=== PATIENT | female | born 1985 | race Caucasian/White ===

== ENCOUNTER 2016-07-22 14:43 | Inpatient (IN) | payer OTHER ==
[~2016-07-22] VITALS: Ht 165.1 cm; Wt 74.8 kg
[~2016-07-22 14:43] MED LIST: DICLOFENAC SODI75 M2 PO; DOXYCYCLINE HY100 M2 PO; NORCO 5-325 TA1 EACH PO
--- NOTE | 2016-07-22 14:54 | NUR ---
PT TO ED C/O R ABD PAIN, RADIATES FROM FRONT ABD TO BACK OF ABD SINCE SATURDAY. C/O SOME NAUSEA, DENIES V/D. PT STATES PAIN IS WORSE WITH INSPIRATION. STATES FEVERS AT HOME HIGH 104, LAST NIGHT. AFEBRILE NOW.
--- NOTE | 2016-07-22 15:02 | NUR ---
DR FARMER TO BEDSIDE FOR EVAL
--- NOTE | 2016-07-22 15:06 | ED GI/GU/ABDOMINAL COMPLAINT ---
History of Present Illness General Chief Complaint: Abdominal Pain/Flank Pain Stated Complaint: R SIDE FLANK PAIN Source: patient, old records Exam Limitations: no limitations Allergies Coded Allergies: NO KNOWN ALLERGIES (02/15/16) Reconcile Medications No Known Home Medications Triage Note: PT TO ED C/O R ABD PAIN, RADIATES FROM FRONT ABD TO BACK OF ABD SINCE SATURDAY. C/O SOME NAUSEA, DENIES V/D. PT STATES PAIN IS WORSE WITH INSPIRATION. STATES FEVERS AT HOME HIGH 104, LAST NIGHT. AFEBRILE NOW. Triage Nurses Notes Reviewed? yes ? N Is pt currently ? No Onset: Abrupt Duration: day(s): (4) Timing: multiple episodes today Severity Numbers: 10 Location: right flank Activities at Onset: none No Modifying Factors: none Associated Symptoms: dysuria, fever/chills, nausea/vomiting HPI: This is a 22-year-old healthy female presents the ER with chief complaint of right flank pain for the past 4 days with fever up to 104.5 at home. Patient admits to dysuria and pain when urinating. Positive nausea but no vomiting. Denies any diarrhea. Denies any similar symptoms. (MARLENY BARAJAS,JUAN CARLOS) Vital Signs & Intake/Output Vital Signs & Intake/Output Vital Signs Date Time Temp Pulse Resp B/P Pulse O2 O2 Flow FiO2 Ox Delivery Rate 07/23 1006 98.8 07/23 0921 99.9 113 20 122/60 97 Room Air 07/23 0907 99.4 07/23 0216 99.0 92 20 118/56 100 Room Air 07/23 0149 100.2 07/23 0146 100.2 88 18 112/58 98 Room Air 07/22 2315 100.6 07/22 2309 100.6 102 18 117/58 97 Room Air 07/22 1922 99.5 07/22 1903 100.0 100 20 96 Room Air 07/22 1733 102.0 119/57 07/22 1726 100.2 16 99 Room Air 07/22 1721 103.0 07/22 1707 97.7 07/22 1603 97.7 80 18 120/76 96 Room Air 07/22 1555 98 Room Air 07/22 1451 97.2 114 20 114/81 96 Room Air ED Intake and Output 07/23 0000 07/22 1200 Intake Total 2000 Output Total Balance 2000 Intake, IV 2000 Patient 165 lb Weight ED Sepsis Exam Date of Focused Sepsis Exam: 07/22/16 Time of Focused Sepsis Exam: 1724 Sepsis Cardiac Exam: Tachycardia Sepsis Resp Exam: CTA Sepsis Cap Refill Exam: <2 Sec Sepsis Peripheral Pulse Exam: Normal Sepsis Peripheral Pulse Location: Radial Sepsis Skin Color Exam: Normal for Ethnicity Skin Temp/Moisture Exam: Hot/Diaphoretic (JUAN CARLOS FARMER MD) Past History Travel History Traveled to [place] past 21 day No Medical History Any Pertinent Medical History? see below for history Neurological: NONE EENT: NONE Cardiovascular: NONE Respiratory: NONE Gastrointestinal: NONE Hepatic: NONE Renal: NONE Musculoskeletal: NONE Psychiatric: NONE Endocrine: NONE Blood Disorders: NONE Cancer(s): NONE Surgical History Surgical History: non-contributory Psychosocial History What is your primary language [place] Tobacco Use: Current Daily Use Daily Tobacco Use Amount/Type: => 5 Cigarettes daily ETOH Use: denies use Illicit Drug Use: denies illicit drug use Family History Hx Contributory? No (JUAN CARLOS FARMER MD) Review of Systems Review of Systems Constitutional: Reports: chills, fever. EENTM: Reports: no symptoms. Respiratory: Denies: cough, short of breath. Cardiovascular: Denies: chest pain, palpitations. GI: Reports: abdominal pain, nausea. Denies: vomiting. Genitourinary: Reports: no symptoms. Musculoskeletal: Reports: back pain. Skin: Reports: no symptoms. Neurological/Psychological: Reports: no symptoms. Hematologic/Endocrine: Reports: polyuria. Denies: bruising, bleeding, polydipsia. Immunologic/Allergic: Denies: splenectomy. All Other Systems: Reviewed and Negative (JUAN CARLOS FARMER MD) Physical Exam Physical Exam General Appearance: well developed/nourished, alert, awake, mild distress Head: atraumatic, normal appearance Eyes: Bilateral: normal appearance, PERRL, normal inspection. Ears, Nose, Throat, Mouth: hearing grossly normal, moist mucous membrane Neck: normal inspection, supple, full range of motion Respiratory: normal breath sounds, chest non-tender, no respiratory distress Cardiovascular: regular rate/rhythm Peripheral Pulses: 2+ radial (R), 2+ radial (L) Gastrointestinal: normal bowel sounds, soft, tenderness (RUQ) Back: CVA tenderness (R) Neurologic/Psych: no motor/sensory deficits, awake, alert, oriented x 3, normal gait Skin: intact, normal color, warm/dry Core Measures ACS in differential dx? No Severe Sepsis Present: No BC x2: Yes NS/LR Started: Yes Septic Shock Present: No (MARLENY BARAJAS,JUAN CARLOS) Progress Differential Diagnosis: UTI/pyelo Diagnostic Imaging: Viewed by Me: CT Scan. Discussed w/RAD: CT Scan. Initial ED EKG: SINUS TACHYCARDIA, INFERIOR T WAVE INVERSIONS (MARLENY BARAJAS,JUAN CARLOS) Plan of Care: Orders Procedure Date/time Status CBC WITHOUT DIFFERENTIAL 07/24 599 Active BASIC ELECTROLYTES PLUS BUN&CR 07/24 599 Active Clear Liquid Diet 07/23 B Active CBC WITHOUT DIFFERENTIAL 07/23 599 Complete BASIC ELECTROLYTES PLUS BUN&CR 07/23 599 Complete Vital Signs 07/23 202 Active Teach/Educate 07/23 202 Active Nutritional Intake, Monitor 07/23 202 Active Isolation 07/23 202 Active Intake & Output 07/23 202 Active Patient Care Conference 07/23 202 Active Activity/Ambulation 07/23 202 Active Saline Lock 07/22 221 Active Pathway - chart 07/22 2212 Active House Staff 07/22 221 Active Code Status 07/22 2212 Active Patient Data 07/22 1905 Active Admit to inpatient 07/22 1839 Active Vital Signs 07/22 1839 Active Code Status 07/22 1839 Complete Add-on Test (ER Only) 07/22 1805 Active EKG 07/22 1732 Active Intake & Output 07/22 1532 Complete Add-on Test (ER Only) 07/22 1526 Active TROPONIN LEVEL 07/22 1525 Complete CULTURE,URINE 07/22 1505 Active BLOOD CULTURE 07/22 1505 Active URINE 07/22 1505 Complete URINALYSIS 07/22 1505 Complete COMPREHENSIVE METABOLIC PANEL 07/22 1505 Complete CBC WITHOUT DIFFERENTIAL 07/22 1505 Complete URINE DRUGS OF ABUSE 07/22 1501 Complete VTE Mechanical Prophylaxis 07/22 UNK Active Vital Signs 07/22 UNK Complete Intake & Output 07/22 UNK Active CIWA 07/22 UNK Complete Laboratory Tests 07/23/16 0830: Anion Gap 11, Estimated GFR > 60, BUN/Creatinine Ratio 8.3, CBC w Diff NO MAN DIFF REQ, RBC 3.69 L, MCV 87.0, MCH 29.5, RDW 14.1, MPV 10.3, Gran % 78.3 H, Lymphocytes % 13.2 L, Monocytes % 8.0, Eosinophils % 0.2, Basophils % 0.3, Absolute Granulocytes 9.9 H, Absolute Lymphocytes 1.7, Absolute Monocytes 1.0 H, Absolute Eosinophils 0, Absolute Basophils 0, [facility] MCHC 33.9 07/22/16 1525: Anion Gap 15, Estimated GFR > 60, BUN/Creatinine Ratio 14.3, Glucose 103 H, Calcium 9.1, Total Bilirubin 0.9, AST 29, ALT 27, Alkaline Phosphatase 89, Troponin I < 0.01, Total Protein 7.4, Albumin 3.7, Globulin 3.7, Albumin/ Globulin Ratio 1.0 L, CBC w Diff MAN DIFF ORDERED, RBC 4.64, MCV 87.4, MCH 29.4 , RDW 14.2, MPV 10.1, Gran % 83.8 H, Lymphocytes % 9.5 L, Monocytes % 6.4, Eosinophils % 0.1, Basophils % 0.2, Absolute Granulocytes 16.9 H, Segmented Neutrophils 81 H, Band Neutrophils 1, Absolute Lymphocytes 1.9, Lymphocytes 12 L, Monocytes 6, Absolute Monocytes 1.3 H, Absolute Eosinophils 0, Absolute Basophils 0, Platelet Estimate ADEQUATE, Normocytic RBCs VERIFIED, Normochromic RBCs VERIFIED, [facility] 33.6 07/22/16 1515: Urinalysis LIGHT H, Urine Color STRAW, Urine Clarity HAZY H, Urine pH 6.0, Ur Specific [place] 1.020, Urine Protein 30 H, Urine Ketones 40 H, Urine Nitrite POS H, Urine Bilirubin NEG@ICTO, Urine Urobilinogen 2.0 H, Ur Leukocyte Esterase MOD H, Ur Microscopic SEDIMENT EXAMINED, Urine RBC 1-3, Urine WBC > 75 H, Ur Epithelial Cells RARE, Urine Hemoglobin TRACE-INTACT, Urine Glucose NEG, Urine Test NEGATIVE 07/22/16 1501: Urine Opiates Screen > 4000.00 H, Methadone Screen < 40, Barbiturate Screen < 60, Ur Phencyclidine Scrn < 6.00, Amphetamines Screen 124, U Benzodiazepines Scrn < 85, Urine Cocaine Screen > 1000 H, Urine Cannabis Screen < 5.00 Microbiology 07/22 1530 BLOOD: Blood Culture - RES GRAM NEGATIVE RODS 07/22 152 BLOOD: Blood Culture - RES 07/22 151 URINE ROUT: Urine Culture - RES GRAM NEGATIVE RODS Departure Departure Time of Disposition: 1839 Disposition: STILL A PATIENT Condition: Stable Clinical Impression Primary Impression: Pyelonephritis Secondary Impressions: Cocaine abuse, Sepsis Referrals: PATIENT HAS NO PRIMARY CARE DR (PCP/Family) Departure Forms: Customer Survey General Discharge Information Prescriptions: Current Visit Scripts No Known Home Medications Admission Note Spoke With: PERLITA BARAJAS,NOE Documentation of Exam: Documentation of any treatments & extenuating circumstances including Concerns Regarding Discharge (functional status, medication knowledge or non-compliance, living conditions, etc.) that warrant an admission rather than observation: [IV as well as some IV fluids, follow-up blood cultures, follow-up urine culture, monitor BROOKE, pain control] (MARLENY BARAJAS,JUAN CARLOS)
--- NOTE | 2016-07-22 15:29 | NUR ---
LABS DRAWN AND SENT (BLUE, SST X 2, LAV, NOLAN, PINK, BLOOD CULTURES) AND IV ESTABLISHED. MEDICATED WITH TORADOL AND NS IVF BOLUS RUNNING. SIG OTHER AT BEDSIDE
[2016-07-22 15:41] LABS: ABSOLUTE BASOPHIL COUNT 0 /CUMM (0.0-0.2); ABSOLUTE EOSINOPHIL COUNT 0 /CUMM (0.0-0.7); ABSOLUTE GRANULOCYTE CT 16.9 /CUMM (1.4-6.5); ABSOLUTE LYMPH COUNT 1.9 /CUMM (1.2-3.4); ABSOLUTE MONOCYTE COUNT 1.3 /CUMM (0.10-0.60); BASOPHIL % 0.2 % (0.0-2.0); EOSINOPHIL % 0.1 % (0-5); GRANULOCYTE % 83.8 % (42.2-75.2); HEMATOCRIT 40.5 % (37-47); MEAN CORPUSCULAR HGB 29.4 PG (27.0-31.0); MEAN CORPUSCULAR HGB CONC 33.6 G/DL (33.0-37.0); MEAN CORPUSCULAR VOLUME 87.4 FL (81.0-99.0); MEAN PLATELET VOLUME 10.1 FL (7.4-10.4); PLATELET COUNT 260 /CUMM (130-400); RBC DISTRIBUTION WIDTH 14.2 % (11.5-14.5); RED BLOOD CELL CT 4.64 /CUMM (4.20-5.40); WHITE BLOOD CELL COUNT 20.1 /CUMM (4.8-10.8)
--- NOTE | 2016-07-22 16:42 | NUR ---
PT TO CT VIA STRETCHER. PT STATES MORPHINE HELPED BUT ONLY FOR A SHORT TIME. PT AGAIN ASKED ABOUT ANY RX'S AT HOME AND DISCUSSED UTOX RESULTS. STATES SHE LAST DID COCAINE ABOUT 4-5 DAYS AGO AND SELF-DETOXING FROM HEROIN, LAST USE APPROX 7 DAYS AGO. DENIES RECENT IV USE, BUT HISTORY OF.
--- NOTE | 2016-07-22 17:07 | NUR ---
RETURNS FROM CT AND MEDICATED WITH TYLENOL PER eMAR
--- NOTE | 2016-07-22 17:16 | CT SCAN REPORT ---
EXAMINATION: CT ABDOMEN AND PELVIS WITH CONTRAST CLINICAL INFORMATION: Right flank pain and fever COMPARISON: CT chest 02/15/2016 TECHNIQUE: Multidetector volumetric imaging was performed of the abdomen and pelvis before and after the IV administration of 95 mL of Optiray 320 intravenous contrast. Sagittal and coronal reformatted images were obtained on the technologist's workstation. DLP: 315 mGy-cm. FINDINGS: LUNG BASES: The visualized lung bases are unremarkable. LIVER, GALLBLADDER, AND BILIARY TREE: The liver is normal in size, shape, and attenuation. No focal hepatic lesion or biliary ductal dilatation is present. The gallbladder is unremarkable with no evidence of radiopaque gallstones, gallbladder wall thickening, or obvious pericholecystic inflammatory changes. PANCREAS: The pancreas is normal in appearance. SPLEEN: There is mild splenomegaly. The spleen is normal in attenuation with no focal findings. The spleen measures approximately 15 cm in its greatest oblique diameter ADRENAL GLANDS: Normal KIDNEYS AND URETERS: The right kidney shows inhomogeneous enhancement with some focal areas of relatively decreased attenuation in the mid upper and lower pole cortex. These are ill-defined and largely involve the upper pole. This could be consistent with diffuse pyelonephritis. No organized abscess or mass is delineated. No perinephric fluid or loculated fluid collection is seen. There is no hydronephrosis, hydroureter, mass or stone. The left kidney is normal in appearance with symmetric enhancement and no hydronephrosis, mass or stone. BLADDER: The bladder is incompletely distended but normal in size and attenuation. No stone is seen GASTROINTESTINAL TRACT: There is no evidence for large or small bowel obstruction or acute inflammation. The appendix is normal in appearance. There is no diverticulosis or diverticulitis. ABDOMINAL WALL: No significant hernia is appreciated. LYMPH NODES: No bulky adenopathy is identified VASCULAR: No aneurysm is identified PELVIC VISCERA: There is a small rim-enhancing cyst in the left ovary measuring approximately 2 cm in size. This may be functional. Right ovary is unremarkable in appearance. Uterus is unremarkable. Several calcifications in the pelvis are likely phleboliths. No mass or free fluid identified. OSSEOUS STRUCTURES: No acute bony abnormality is seen. IMPRESSION: Inhomogeneous attenuation of the right kidney is consistent with diffuse pyelonephritis. No abscess or mass is delineated. No perinephric fluid collection is seen. There is no stone hydronephrosis or hydroureter. Splenomegaly with no focal finding Presumed functional cyst in the left ovary No other finding.
--- NOTE | 2016-07-22 17:28 | NUR ---
PT NOTED TO BE RIGORING WITH TYMPANIC TEMP 103.[address]P 100.[address]. [address] FARMER AWARE. PLAN FOR ADMISSION. MORE BLANKETS PROVIDED DUE TO CONTINUED C/O FEELING COLD AND SHIVERING. ADDITIONAL BOLUS NS IVF RUNNING PER eMAR
--- NOTE | 2016-07-22 17:40 | NUR ---
EKG COMPLETED BY ENIO BLOOM. INFORMED WAITING PROVIDED REGARDING PLAN FOR EVAL BY HOUSE STAFF ONCE ADMITTED AND DETERMINATION OF MEDICATION INTERVENTIONS
--- NOTE | 2016-07-22 19:23 | NUR ---
PT CONTINUES TO C/O PAIN, HOUSE AND ADMITTING STAFF HAS NOT BEEN IN TO EVAL PT SINCE ADMISSION. DR FARMER AWARE OF CONTINUED PAIN
--- NOTE | 2016-07-22 19:32 | NUR ---
MEDICATED WITH MORPHINE PER eMAR
--- NOTE | 2016-07-22 20:06 | NUR ---
MOD PAGED TO DETERMINE TEAM THAT WILL BE TAKING CARE OF PT, SHE IS REQUESTING UPDATE AND HAS NOT BEEN EVALUATED BY HOUSE STAFF SINCE INFORMED OF ADMISSION AT AROUND 6PM
--- NOTE | 2016-07-22 20:28 | NUR ---
NURSING WHIP OPERATOR INFORMED OF INABILITY TO GET IN TOUCH WITH MOD OR ANY HOUSE STAFF CARING FOR THIS PT. SHE IS UPSET REGARDING LACK OF PHYSICIAN INVOLVEMENT AND SHE IS NOT FEELING WELL. WILL CONT TO ATTEMPT CONTACT WITH MOD
--- NOTE | 2016-07-22 21:09 | NUR ---
MOD AGAIN PAGED MULTIPLE TIMES BY ELIANA RN AND DR TAPIA PAGED
--- NOTE | 2016-07-22 21:10 | NUR ---
PER DR TAPIA, PT TO BE NEXT TO BE EVALUATED BY HOUSE STAFF
--- NOTE | 2016-07-22 21:20 | History & Physical ---
DWIGHT LOPEZ MD 07/22/162118: General Information and HPI MD Statement: I have seen and personally examined CAROL DIAMOND and documented this H&P. The patient is a 30 year old F who presented with a patient stated chief complaint of [right flank pain and fever]. Source of Information: patient Exam Limitations: no limitations History of Present Illness: 30-year-old female with chronic back pain, presented to the ED for 4 days history of right flank pain and fever. On night, around 730pm, she started feeling crampy pain from her RUQ to her right back. She woke up in the middle of the night with fever of 104.5. Ibuprofen helped with the fever. Over the past nights since, she continued to have fever waking her up at the night and at some point she was too weak to even take her temperature and she suspects her temperature was probably 104.7. The pain worsened today, rated as 20/10, prompting her to come to the ED. She describes a constant pain, with intermittent throbbing that lasts about 5 minutes across her RUQ and her right back. Initially, lying on the right side would help with the pain, but currently she cannot find a comfortable position. She has been nauseous since but did not vomit until today in the ED. She had 1 episode of bilious vomiting. She reports that over the past few months , she has had bilious vomiting, unrelated to food, and has not gotten it evaluated. She has had decreased appetite and has lost about 10 lbs in the last 1 month. Of note, she was incarcerated in [id number] for assault, and again in [id number] for violation of her probation. Her baseline weight is supposed to be 140 lbs, and when she got out of [facility] on January 05 2016, she weighed 230 lbs. She claims that she is still shedding the weight to go back to her normal weight. Her diet consists of mostly quick and easy microwavable food (hot pockets). On ROS, she reports chills, sweats, dizziness, feeling weak, stuffy nose, shortness of breath. She lives with her fiance's family. Her fiance recently got out of [facility]. She has hx of IVDA. She last used cocaine 5 days ago and heroin 5-7 days ago. She sniffs heroin now and denies recent IV drug use. She smokes cigarette 0.5 ppd X 12 years. She denies alcohol and marijuana use. Allergies/Medications Allergies: Coded Allergies: NO KNOWN ALLERGIES (02/15/16) Home Med list No Known Home Medications Past History Travel History Traveled to [place] past 21 day No Medical History Neurological: NONE EENT: NONE Cardiovascular: NONE Respiratory: NONE Gastrointestinal: NONE Hepatic: NONE Renal: NONE Musculoskeletal: chronic back pain Psychiatric: NONE Endocrine: NONE Blood Disorders: NONE Cancer(s): NONE Surgical History Surgical History: non-contributory Past Family/Social History Family History Relations & Conditions if any grandfather FH: diabetes mellitus FH: myocardial infarction FATHER Patent foramen ovale MOTHER aunt FH: brain cancer FH: breast cancer Psychosocial History Where do you live? Home Who Do You Live With? amira's family Services at Home: None Primary Language: Urugu[place] Smoking Status: Current Everyday Smoker ETOH Use: denies use Illicit Drug Use: cocaine, heroin Functional Ability ADLs Independent: dressing, eating, toileting, bathing. Ambulation: independent IADLs Independent: shopping, housework, finances, food prep, telephone, transportation , medication admin. Review of Systems Review of Systems Constitutional: Reports: chills, fever, weakness. EENTM: Denies: visual changes. Cardiovascular: Reports: chest pain, palpitations. Respiratory: Reports: short of breath. GI: Reports: abdominal pain, nausea, vomiting. Denies: bloating, constipation, diarrhea, changes in stool. Genitourinary: Reports: dysuria. Musculoskeletal: Reports: back pain. Exam & Diagnostic Data Last 24 Hrs of Vital Signs/I&O Vital Signs Date Time Temp Pulse Resp B/P Pulse O2 O2 Flow FiO2 Ox Delivery Rate 07/22 2315 100.6 07/22 2309 100.6 102 18 117/58 97 Room Air 07/22 1922 99.5 07/22 1903 100.0 100 20 96 Room Air 07/22 1733 102.0 119/57 07/22 1726 100.2 16 99 Room Air 07/22 1721 103.0 07/22 1707 97.7 07/22 1603 97.7 80 18 120/76 96 Room Air 07/22 1555 98 Room Air 07/22 1451 97.2 114 20 114/81 96 Room Air Intake & Output 07/23 0800 07/23 0000 07/22 1600 Intake Total 1000 1000 Output Total Balance 1000 1000 Intake, IV 1000 1000 Patient 74.843 kg Weight Physical Exam General Appearance Alert, Oriented X3, Cooperative, Mild Distress, diaphoretic Skin No Significant Lesion, some tattoos noted HEENT Atraumatic, PERRLA, EOMI, dry mucous membranes Neck Supple Cardiovascular Normal S1, Normal S2, No Murmurs, Gallops, Rubs, tachycardic Lungs Clear to Auscultation, Normal Air Movement Abdomen Normal Bowel Sounds, Soft, tender on RUQ and LLQ with light palpation , right CVA tenderness Neurological Normal Speech Extremities No Edema Vascular Normal Pulses, Pulses Symmetrical, normal cap refill Last 24 Hrs of Labs/Campos: Laboratory Tests 07/22/16 1525: Anion Gap 15, Estimated GFR > 60, BUN/Creatinine Ratio 14.3, Glucose 103 H, Calcium 9.1, Total Bilirubin 0.9, AST 29, ALT 27, Alkaline Phosphatase 89, Troponin I < 0.01, Total Protein 7.4, Albumin 3.7, Globulin 3.7, Albumin/ Globulin Ratio 1.0 L, CBC w Diff MAN DIFF ORDERED, RBC 4.64, MCV 87.4, MCH 29.4 , RDW 14.2, MPV 10.1, Gran % 83.8 H, Lymphocytes % 9.5 L, Monocytes % 6.4, Eosinophils % 0.1, Basophils % 0.2, Absolute Granulocytes 16.9 H, Segmented Neutrophils 81 H, Band Neutrophils 1, Absolute Lymphocytes 1.9, Lymphocytes 12 L, Monocytes 6, Absolute Monocytes 1.3 H, Absolute Eosinophils 0, Absolute Basophils 0, Platelet Estimate ADEQUATE, Normocytic RBCs VERIFIED, Normochromic RBCs VERIFIED, PUBS MCHC 33.6 07/22/16 1515: Urinalysis LIGHT H, Urine Color STRAW, Urine Clarity HAZY H, Urine pH 6.0, Ur Specific [place] 1.020, Urine Protein 30 H, Urine Ketones 40 H, Urine Nitrite POS H, Urine Bilirubin NEG@ICTO, Urine Urobilinogen 2.0 H, Ur Leukocyte Esterase MOD H, Ur Microscopic SEDIMENT EXAMINED, Urine RBC 1-3, Urine WBC > 75 H, Ur Epithelial Cells RARE, Urine Hemoglobin TRACE-INTACT, Urine Glucose NEG, Urine Test NEGATIVE 07/22/16 1501: Urine Opiates Screen > 4000.00 H, Methadone Screen < 40, Barbiturate Screen < 60, Ur Phencyclidine Scrn < 6.00, Amphetamines Screen 124, U Benzodiazepines Scrn < 85, Urine Cocaine Screen > 1000 H, Urine Cannabis Screen < 5.00 Microbiology 07/22 1530 BLOOD: Blood Culture - RECD 07/22 1525 BLOOD: Blood Culture - RECD 07/22 1515 URINE ROUT: Urine Culture - RECD Diagnostic Data EKG Results SR rate 106. Normal QTc. Other Results CT abd: Inhomogeneous attenuation of the right kidney is consistent with diffuse pyelonephritis. No abscess or mass is delineated. No perinephric fluid collection is seen. There is no stone hydronephrosis or hydroureter. Splenomegaly with no focal finding Presumed functional cyst in the left ovary No other finding. Assessment/Plan Assessment: 30-year-old female with chronic back pain, presented to the ED for 4 days history of right flank pain and fever. CT shows pyelonephritis. Pt admitted to with the following problems addressed: # Pyelonephritis - Given 1 time ceftriaxone in ED * Continue ceftriaxone * Morphine 2 mg q4p severe pain, vicodin moderate pain, tylenol for mild pain * Zofran for nausea * 75ml/hr NS * Follow BC X 2, UC # Bilious vomiting * Consider GI consult # LLQ pain - most likely due to ovarian cyst # Drug abuse - Last use heroin 5-7 days ago - Urine opiate > 4000 - Positive urine cocaine * Watch for opiate withdrawal * Consider psych and social work consult for drug abuse # Nicotine dependence Nicotine patch Diet: regular DVT ppx: mech and pharm FULL CODE As Ranked By This Provider Problem List: 1. Pyelonephritis Core Measures/Miscellaneous Acute Coronary Syndrome ACS Diagnosis: No Cerebrovascular Accident CVA/TIA Diagnosis: No Congestive Heart Failure CHF Diagnosis: No Venous Thromboembolism VTE Risk Factors: Smoking VTE Prophylaxis Ordered Inpt: Mech & Pharm No Mech VTE prophylaxis d/t: No contraindications No VTE Pharm Prophylaxis d/t: No contraindications VTE Diagnosis: No VTE Type: NONE VTE Confirmed by (Test): NONE Severe Sepsis Severe Sepsis Present: No Septic Shock Septic Shock Present: No Miscellaneous Documentation Attending Case Discussed With: MARKY TAPIA MD Primary Care Physician: PATIENT HAS NO PRIMARY CARE DR Patient sees these Specialists None Level of Patient Care: General Medicine LUNA BORJAS 07/23/16 0520: Resident Review Statement Resident Statement: examined this patient, discussed with marketing research intern, agreed with marketing research intern, reviewed EMR data (avail), discussed with case mgmt, reviewed images, amended to note Other Findings: This is 30-year-old female with chronic back pain, presented to the ED for 4 days history of right flank pain and fever. Patient also reports multiple episodes of vomiting and she reports fever at home that was measured 104.5 she stated that appropriate help to control her fever and pain. Patient also reports dysuria and change in the color of urine, she states sometimes it is darker than usual. she reports chills, sweats, dizziness, feeling weak, stuffy nose, shortness of breath. Patient stated that she was treated for right arm cellulitis on June 2016, and she wasn't admitted at that time she was sent home from the emergency department on doxycycline. Physical examination, imaging, level as above Problem list: -Sepsis 2/2 Right side pyelonephritis, non-obstructive -Polysubstance drug Use Plan: -Admit patient to general medicine floor -Vitals every shift -Continue the patient IV ceftriaxone pending culture -Follow urine and blood culture -Zofran when necessary for nausea -IV morphine for pain -Start the patient on a clear liquid diet and advance as tolerated -Nicotine patch, smoking cessation consultation -Pain pathway -DVT prophylaxis subcutaneous heparin -Full code REGINA BARAJAS, [facility] 07/23/16 0614: Attending MD Review Statement Attending Statement Attending MD Statement: examined this patient, discuss w/resident/PA/PEDIATRIC CARE COORDINATOR, agreed w/resident/PA/PEDIATRIC CARE COORDINATOR, discussed with family Attending Assessment/Plan: 30 yo F with h/o chronic back pain, substance abuse, is here with 3-day h/ throbbing right flank pain, urinary symptoms, fever, nausea and vomiting. During our evaluation, she c/o left lower quadrant discomfort. Tmax 103, tachycardic, BP stable. Examination remarkable for right CVA tenderness. Leukocytosis 20, no bands, UA positive, Utox positive for opiates and cocaine. Imaging s/p right kidney pyelonephritis, no abscess or hydronephrosis. Presumed functional cyst in the left ovary. Admitting for sepsis secondary to acute right sided pyelonephritis with no obstructive uropathy. Panculture, IV ceftriaxone, IV fluids, anti-emetics, if symptoms do not improve consider Urology input. Pain management with Iv morphine. Advance diet as tolerated. Smoking and substance abuse cessation counseling done. Pain in the LLQ likely 2/2 left ovarian cyst. DVT ppx Hep SC. Full code.
--- NOTE | 2016-07-22 21:34 | NUR ---
PT VOMITING ON FLOOR AND IN SIGNIFICANT PAIN AT THIS TIME. STILL UNABLE TO REACH MOD. ER MD DR MILLER ORDERED PHENERGEN, ADMINISTERED PER eMAR. LIGHTS DIMMED FOR COMFORT AND INFORMED WAITING PROVIDED.
--- NOTE | 2016-07-22 21:52 | NUR ---
HOUSE STAFF AND DR GASCA AT BEDSIDE FOR PT EVALUATION
--- NOTE | 2016-07-22 23:23 | NUR ---
NS IVF GTT AT 75ML/HR RUNNING. ALSO MEDICATED WITH TYLENOL PRN FOR FEVER 100.6, MORPHINE PRN FOR PAIN /10, NICOTINE PATCH APPLIED TO R DELT AND HEPARIN SC ADMINISTERED. LIGHTS DIMMED FOR COMFORT PER REQUEST. SIG OTHER REMAINS AT BEDSIDE
--- NOTE | 2016-07-23 00:33 | Admission Certification ---
Admission Certification Certification Statement - As attending physician, I certify that at the time of - admission, based on clinical presentation, severity of - symptoms, need for further diagnostic testing and - therapeutic interventions, and risk of adverse outcomes - without in-hospital treatment, in my clinical assessment, - this patient requires an acute hospital stay for a minimum - of two nights or longer. I have also considered psychsocial - factors such as support system, advanced age, financial - issues, cognitive issues, and failed out-patient treatments, - past re-admission history, safety of patient, and lack of - compliance as applicable. Specific rationale supporting this admission is: Sepsis 2/2 acute pyelonephritis.
--- NOTE | 2016-07-23 01:09 | NUR ---
PATIENT ASSIGNED TO ROOM 219 BED 2
--- NOTE | 2016-07-23 01:21 | NUR ---
REPORT CALLED TO ALBERTO HERNANDEZ.
--- NOTE | 2016-07-23 01:50 | NUR ---
ROOM READY, PATIENT TO BE TRANSPORTED TO FLOOR AT THIS TIME.
[2016-07-23 02:16] VITALS: BP 118/56
[2016-07-23 09:21] VITALS: BP 122/60
[2016-07-23 09:52] LABS: ABSOLUTE BASOPHIL COUNT 0 /CUMM (0.0-0.2); ABSOLUTE EOSINOPHIL COUNT 0 /CUMM (0.0-0.7); ABSOLUTE GRANULOCYTE CT 9.9 /CUMM (1.4-6.5); ABSOLUTE LYMPH COUNT 1.7 /CUMM (1.2-3.4); BASOPHIL % 0.3 % (0.0-2.0); EOSINOPHIL % 0.2 % (0-5); GRANULOCYTE % 78.3 % (42.2-75.2); MEAN CORPUSCULAR HGB 29.5 PG (27.0-31.0); MEAN CORPUSCULAR HGB CONC 33.9 G/DL (33.0-37.0); MEAN PLATELET VOLUME 10.3 FL (7.4-10.4); PLATELET COUNT 206 /CUMM (130-400); RBC DISTRIBUTION WIDTH 14.1 % (11.5-14.5); RED BLOOD CELL CT 3.69 /CUMM (4.20-5.40); WHITE BLOOD CELL COUNT 12.7 /CUMM (4.8-10.8)
[2016-07-23 10:15] LABS: HEMATOCRIT 32.1 % (37-47)
--- NOTE | 2016-07-23 11:44 | PN- Housestaff ---
See Addendum TISHA HECK 07/23/16 1134: Subjective Follow-up For: Pyelonephritis Review of Systems Constitutional: Denies: chills, diaphoresis, fever, malaise, weakness, unexplained weight loss. EENTM: Denies: blurred vision, double vision, visual changes, eye pain, eye drainage, eye tearing, icterus, ear discharge, ear pain, ear redness, hearing changes, nasal congestion, epistaxis, nasal pain, throat pain, throat swelling, mouth pain, tooth pain. Cardiovascular: Denies: chest pain, edema, orthopena, palpitations, peripheral edema, syncope. Respiratory: Denies: cough, hemoptysis, orthopnea, short of breath, sputum production, stridor, wheezing. Gastrointestinal: Denies: abdominal pain, bloating, constipation, diarrhea, distention, bowel incontinence, melena, nausea, bloody stool, changes in stool, vomiting, steatorrhea. Objective Last 24 Hrs of Vital Signs/I&O Vital Signs Date Time Temp Pulse Resp B/P Pulse O2 O2 Flow FiO2 Ox Delivery Rate 07/23 1006 98.8 07/23 0921 99.9 113 20 122/60 97 Room Air 07/23 0907 99.4 07/23 0216 99.0 92 20 118/56 100 Room Air 07/23 0149 100.2 07/23 0146 100.2 88 18 112/58 98 Room Air 07/22 2315 100.6 07/22 2309 100.6 102 18 117/58 97 Room Air 07/22 1922 99.5 07/22 1903 100.0 100 20 96 Room Air 07/22 1733 102.0 119/57 07/22 1726 100.2 16 99 Room Air 07/22 1721 103.0 07/22 1707 97.7 07/22 1603 97.7 80 18 120/76 96 Room Air 07/22 1555 98 Room Air 07/22 1451 97.2 114 20 114/81 96 Room Air Intake & Output 07/23 1600 07/23 0800 07/23 0000 Intake Total 525 1000 Output Total 1050 Balance -525 1000 Intake, IV 525 1000 Output, Urine 1050 Patient 165 lb Weight Physical Exam General Appearance: Alert, Oriented X3, Cooperative, Mild Distress Skin: No Rashes, No Breakdown, No Significant Lesion HEENT: Atraumatic, PERRLA, EOMI, Mucous Membr. moist/pink Neck: Supple, No JVD, No thryomegaly, +2 Carotid Pulse wo Bruit, No LAD Lymphatic: Axillary nl, Cervical nl Cardiovascular: Normal S1, Normal S2, No Murmurs Abdomen: tenderness right flank, mild guarding no rebound Neurological: Normal Speech Extremities: No Clubbing, No Cyanosis, No Edema, Normal Pulses, No Tenderness/ Swelling Vascular: Normal Pulses Current Medications: Current Medications Sig/Calista Start time Last Medication Dose Route Stop Time Status Admin Acetaminophen 0 .STK-MED ONE 07/22 2308 DC PO Acetaminophen 650 MG Q6P PRN 07/22 2199 AC 07/23 PO 0907 Acetaminophen 0 .STK-MED ONE 07/22 170 DC IV Acetaminophen 1,000 MG ONCE ONE 07/22 1700 DC 07/22 N/A 1 UNIT IV 07/22 1714 1707 Acetaminophen/ 1 TAB Q6P PRN 07/22 2199 07/23 Hydrocodone Bitart PO 09 Ceftriaxone Sodium 1,000 MG DAILY 07/23 1000 AC 07/23 IV 0907 Ceftriaxone Sodium 1,000 MG ONCE ONE 07/22 1600 DC 07/22 IV 07/22 1601 1600 Ceftriaxone Sodium 0 .STK-MED ONE 07/22 1600 DC .ROUTE Heparin Sodium 0 .STK-MED ONE 07/22 2308 DC (Porcine) .ROUTE Heparin Sodium 5,000 UNIT Q8 07/22 2199 AC 07/23 (Porcine) SC 0550 Ketorolac 0 .STK-MED ONE 07/22 1526 DC Tromethamine .ROUTE Ketorolac 30 MG ONCE ONE 07/22 1515 DC 07/22 Tromethamine IV 07/22 1516 1527 Morphine Sulfate 0 .STK-MED ONE 07/22 2308 DC .ROUTE Morphine Sulfate 2 MG Q4P PRN 07/22 2200 AC 07/23 IV 1116 Morphine Sulfate 4 MG ONCE ONE 07/22 1930 DC 07/22 IV 07/22 193 1932 Morphine Sulfate 0 .STK-MED ONE 07/22 1926 DC .ROUTE Morphine Sulfate 4 MG ONCE ONE 07/22 1600 DC 07/22 IV 07/22 1601 1600 Morphine Sulfate 0 .STK-MED ONE 07/22 1600 DC .ROUTE Nicotine 14 MG DAILY 07/22 221 AC 07/22 TOP 2315 Ondansetron HCl 4 MG .STK-MED ONE 07/23 0219 DC IM 07/23 0220 Ondansetron HCl 4 MG Q8P PRN 07/22 2199 AC 07/23 IV 0226 Promethazine HCl 0 .STK-MED ONE 07/221 DC .ROUTE Promethazine HCl 25 MG ONCE ONE 07/22 2129 DC 07/22 IV 07/22 213 213 Sodium Chloride 1,000 ML .[id number] 07/22 2199 AC 07/23 IV 1121 Sodium Chloride 1,000 ML BOLUS ONE 07/22 1730 DC 07/22 IV 07/22 1829 1735 Sodium Chloride 1,000 ML BOLUS ONE 07/22 1515 DC 07/22 IV 07/22 1614 1527 Last 24 Hrs of Lab/Campos Results Last 24 Hrs of Labs/Mics: Laboratory Tests 07/23/16 0830: Anion Gap 11, Estimated GFR > 60, BUN/Creatinine Ratio 8.3, CBC w Diff NO MAN DIFF REQ, RBC 3.69 L, MCV 87.0, MCH 29.5, RDW 14.1, MPV 10.3, Gran % 78.3 H, Lymphocytes % 13.2 L, Monocytes % 8.0, Eosinophils % 0.2, Basophils % 0.3, Absolute Granulocytes 9.9 H, Absolute Lymphocytes 1.7, Absolute Monocytes 1.0 H, Absolute Eosinophils 0, Absolute Basophils 0, PUBS MCHC 33.9 07/22/16 1525: Anion Gap 15, Estimated GFR > 60, BUN/Creatinine Ratio 14.3, Glucose 103 H, Calcium 9.1, Total Bilirubin 0.9, AST 29, ALT 27, Alkaline Phosphatase 89, Troponin I < 0.01, Total Protein 7.4, Albumin 3.7, Globulin 3.7, Albumin/ Globulin Ratio 1.0 L, CBC w Diff MAN DIFF ORDERED, RBC 4.64, MCV 87.4, MCH 29.4 , RDW 14.2, MPV 10.1, Gran % 83.8 H, Lymphocytes % 9.5 L, Monocytes % 6.4, Eosinophils % 0.1, Basophils % 0.2, Absolute Granulocytes 16.9 H, Segmented Neutrophils 81 H, Band Neutrophils 1, Absolute Lymphocytes 1.9, Lymphocytes 12 L, Monocytes 6, Absolute Monocytes 1.3 H, Absolute Eosinophils 0, Absolute Basophils 0, Platelet Estimate ADEQUATE, Normocytic RBCs VERIFIED, Normochromic RBCs VERIFIED, PUBS MCHC 33.6 07/22/16 1515: Urinalysis LIGHT H, Urine Color STRAW, Urine Clarity HAZY H, Urine pH 6.0, Ur Specific [place] 1.020, Urine Protein 30 H, Urine Ketones 40 H, Urine Nitrite POS H, Urine Bilirubin NEG@ICTO, Urine Urobilinogen 2.0 H, Ur Leukocyte Esterase MOD H, Ur Microscopic SEDIMENT EXAMINED, Urine RBC 1-3, Urine WBC > 75 H, Ur Epithelial Cells RARE, Urine Hemoglobin TRACE-INTACT, Urine Glucose NEG, Urine Test NEGATIVE 07/22/16 1501: Urine Opiates Screen > 4000.00 H, Methadone Screen < 40, Barbiturate Screen < 60, Ur Phencyclidine Scrn < 6.00, Amphetamines Screen 124, U Benzodiazepines Scrn < 85, Urine Cocaine Screen > 1000 H, Urine Cannabis Screen < 5.00 Microbiology 07/22 1530 BLOOD: Blood Culture - RES GRAM NEGATIVE RODS 07/22 1525 BLOOD: Blood Culture - WKST 07/22 1515 URINE ROUT: Urine Culture - RES GRAM NEGATIVE RODS Assessment/Plan Assessment: 30 yo F with h/o chronic back pain, substance abuse, is here with 3-day h/ throbbing right flank pain, urinary symptoms, fever, nausea and vomiting Leukocytosis 20, no bands, UA positive, Utox positive for opiates and cocaine. Imaging s/p right kidney pyelonephritis, no abscess or hydronephrosis. Presumed functional cyst in the left ovary. CT scan: Inhomogeneous attenuation of the right kidney is consistent with diffuse pyelonephritis 1) Pyelonephritis * And tinea IV ceftriaxone considering positive blood culture for gram-negative * Leukocytosis and nausea is improving * advance diet * Continue pain management with IV morphine 2 mg every 4 as needed for severe pain * The blood culture and urine culture results for final antibiogram results * Possible switch to by mouth antibiotics after 3 days and discharged home Full code The video prophylaxis heparin 5000 units every 8h Problem List: 1. Cellulitis of right axilla 2. Pyelonephritis 3. Cocaine abuse 4. Sepsis Pain Ratin Pain Location: right flank and back Pain Goal: Pain 4 or less Pain Plan: IV morphine 2 mg every 4 as needed Tomorrow's Labs & Rationales: CBC BEP Acute infection Referring renal function TRUONG BARAJASHUA 07/23/16 1618: Attending MD Review Statement Attending Statement Attending MD Statement: examined this patient, discuss w/resident/PA/BINDING FOLDER MACHINE, agreed w/resident/PA/BINDING FOLDER MACHINE, reviewed EMR data (avail), discussed with nursing, discussed with case mgmt, reviewed images, amended to note Attending Assessment/Plan: Patient seen and examined, overall feels better but still complains of back pain and abdominal pain. She is a 22-year-old female with history of IV drug abuse was admitted with sepsis secondary to acute pyelonephritis and UTI. Currently on treatment with ceftriaxone. She is also bacteremic with gram-negative rods. Continue current antibiotics and follow-up on cultures. Fortunately creatinine remained stable. Continue current pain medications. DVT px: Heparin subcutaneous
--- NOTE | 2016-07-23 15:40 | Patient Discharge Instructions ---
Discharge Instructions General Discharge Information You were seen/treated for: Pyelonephritis Watch for these problems: worsening fever abd flank pain altered mental status Special Instructions: 1) follow up with your PCP 2) Follow up with Dr. Phoenix as soon as possible Acute Coronary Syndrome Inclusion Criteria At DC or during hospital stay patient has or had the following: ACS DIAGNOSIS No Discharge Core Measures Meds if any: Prescribed or Continued at Discharge Meds if any: NOT Prescribed or Continued at Discharge Congestive Heart Failure Inclusion Criteria At DC or during hospital stay patient has or had the following: CHF DIAGNOSIS No Discharge Core Measures Meds if any: Prescribed or Continued at Discharge Meds if any: NOT Prescribed or Continued at Discharge Cerebrovascular accident Inclusion Criteria At DC or during hospital stay patient has or had the following: CVA/TIA Diagnosis No Discharge Core Measures Meds if any: Prescribed or Continued at Discharge Meds if any: NOT Prescribed or Continued at Discharge Venous thromboembolism Inclusion Criteria VTE Diagnosis No VTE Type NONE VTE Confirmed by (Test) NONE Discharge Core Measures - Per Current guidelines, there needs to be overlap - treatment for the first 5 days of Warfarin therapy. - If discharged on Warfarin prior to 5 days of - overlap therapy, the patient will need to be - assessed for post discharge needs including - *Post discharge parental anticoagulation - *Warfarin and/or parental anticoagulation education - *Follow up date to check INR post discharge At least 5 days overlap therapy as Inpatient No Meds if any: Prescribed or Continued at Discharge Note: Overlap Therapy is Warfarin and Anticoagulant Meds if any: NOT Prescribed or Continued at Discharge
[2016-07-23 16:17] VITALS: BP 120/62
[2016-07-24 00:18] VITALS: BP 100/78
--- NOTE | 2016-07-24 07:36 | PN- Housestaff ---
See Addendum TISHA HECK 07/24/16 0735: Subjective Follow-up For: Right kidney pyelonephritis Hx of drug abuse Complaints: pain , no nausea Subjective: patient was visited and examined this morning. Patient is complaining of right flank pain. Pain is responding to morphine but thats wanes quickly. Review of Systems Constitutional: Reports: see HPI, fever, malaise. Denies: chills, diaphoresis, weakness, unexplained weight loss. EENTM: Denies: blurred vision, double vision, visual changes, eye pain, eye drainage, eye tearing, icterus, ear discharge, ear pain, ear redness, hearing changes, nasal congestion, epistaxis, nasal pain, throat pain, throat swelling, mouth pain, tooth pain. Cardiovascular: Denies: chest pain, edema, orthopena, palpitations, peripheral edema, syncope. Respiratory: Denies: cough, hemoptysis, orthopnea, short of breath, sputum production, stridor, wheezing. Gastrointestinal: Denies: abdominal pain, bloating, constipation, diarrhea, distention, bowel incontinence, melena, nausea, bloody stool, changes in stool, vomiting, steatorrhea. Genitourinary: Denies: discharge, dysuria, frequency, hematuria, hesitation, nocturia, pain, urgency. Musculoskeletal: Denies: back pain, gout, joint pain, joint swelling, muscle pain, muscle stiffness, neck pain. Skin: Denies: cysts, change in skin color, change in hair/nails, dryness, erythema, jaundice, lesions, lymphangitis, lumps, moles, rash. Neurological/Psychological: Denies: anxiety, ataxia, cognitive dysfunction, confusion, depressed, dementia, emotional problems, headache, numbness, paresthesia, pre-existing deficit, petit mal seizures, tingling, tremors, tonic-clonic seizures, unable to move lower ext , unable to move upper ext, weakness, other. Objective Last 24 Hrs of Vital Signs/I&O Vital Signs Date Time Temp Pulse Resp B/P Pulse O2 O2 Flow FiO2 Ox Delivery Rate 07/24 0557 99.3 07/24 0018 100.2 78 20 100/78 98 Room Air 07/236 101.1 07/23 2016 101.0 07/23 1809 97.8 07/23 1654 99.9 07/23 1636 99.9 07/23 1617 98 20 120/62 99 07/23 1537 102.0 07/23 1006 98.8 07/23 0921 99.9 113 20 122/60 97 Room Air 07/23 0907 99.4 Intake & Output 07/24 1600 07/24 0800 07/24 0000 Intake Total 840 780 Output Total 650 450 Balance 190 330 Intake, IV 600 300 Intake, Oral 240 480 Output, Urine 650 450 Physical Exam General Appearance: Alert, Oriented X3, Cooperative, Mild Distress Skin: No Rashes HEENT: Atraumatic, PERRLA, EOMI, Mucous Membr. moist/pink Neck: Supple, No JVD, No thryomegaly, +2 Carotid Pulse wo Bruit, No LAD Lymphatic: Axillary nl, Cervical nl Cardiovascular: Normal S1, Normal S2, No Murmurs Lungs: Clear to Auscultation, Normal Air Movement Abdomen: Normal Bowel Sounds, Soft, No Tenderness, No Hepatospenomegaly, No Masses Neurological: Normal Speech, Strength at 5/5 X4 Ext Extremities: No Cyanosis, No Edema Vascular: Normal Pulses, Pulses Symmetrical Other Physical Findings: CVA tenderness right sided Current Medications: Current Medications Sig/Calista Start time Last Medication Dose Route Stop Time Status Admin Acetaminophen 650 MG Q6-PRN PRN 07/24 799 AC PO Acetaminophen 650 MG ONCE ONE 07/23 2014 DC 07/23 PO 07/23 Acetaminophen 650 MG .STK-MED ONE 07/23 0853 DC PO 07/23 0854 Acetaminophen 650 MG Q6P PRN 07/22 2199 DC 07/23 PO 1537 Acetaminophen/ 1 TAB Q6P PRN 07/22 2199 AC 07/23 Hydrocodone Bitart PO 09 Ceftriaxone Sodium 1,000 MG DAILY 07/23 1000 AC 07/23 IV 0907 Heparin Sodium 5,000 UNIT Q8 07/22 2199 AC 07/24 (Porcine) SC 0548 Morphine Sulfate 2 MG Q2P PRN 07/24 799 AC IV Morphine Sulfate 2 MG Q4P PRN 07/22 2199 DC 07/24 IV 0551 Nicotine 14 MG DAILY 07/22 2215 AC 07/23 TOP 2121 Ondansetron HCl 4 MG Q8P PRN 07/22 2199 AC 07/23 IV 0226 Patient Medication 1 ED .STK-MED ONE 07/23 1350 DC Teaching ED 07/23 1351 Sodium Chloride 1,000 ML Q13H 07/23 2014 AC 07/23 IV 2017 Sodium Chloride 1,000 ML .[id number] 07/22 2200 DC 07/23 IV 1121 Last 24 Hrs of Lab/Campos Results Last 24 Hrs of Labs/Mics: Laboratory Tests 07/23/16 0830: Anion Gap 11, Estimated GFR > 60, BUN/Creatinine Ratio 8.3, CBC w Diff NO MAN DIFF REQ, RBC 3.69 L, MCV 87.0, MCH 29.5, RDW 14.1, MPV 10.3, Gran % 78.3 H, Lymphocytes % 13.2 L, Monocytes % 8.0, Eosinophils % 0.2, Basophils % 0.3, Absolute Granulocytes 9.9 H, Absolute Lymphocytes 1.7, Absolute Monocytes 1.0 H, Absolute Eosinophils 0, Absolute Basophils 0, PUBS MCHC 33.9 Assessment/Plan Assessment: 30 yo F with h/o chronic back pain, Hx of substance abuse was admitted for pyelonephritis. CT scan: Inhomogeneous attenuation of the right kidney is consistent with diffuse pyelonephritis. WBC: Final Antibiogram results are pending. Blood and urine Cx positive for Gram negative Rods. On IV cefteriaxone #2 day 1) Pyelonephritis * continue IV ceftriaxone considering positive blood culture for gram-negative * opt pain management to IV morphine 2 mg every 2h prn * advance diet; stop IV fluids as she tolerated the diet * The blood culture and urine culture results for final antibiogram results Full code DVT prophylaxis heparin 5000 units every 8h Problem List: 1. Bacteremia 2. Pyelonephritis Pain Ratin Pain Location: right flank Pain Goal: Pain 4 or less Pain Plan: IV morphine 2mg q2h PRN Tomorrow's Labs & Rationales: cbc bep DVT/Prophylaxis: pharmacological TRUONG BARAJAS,HUA 07/24/16 1154: Attending MD Review Statement Attending Statement Attending MD Statement: examined this patient, discuss w/resident/PA/ROOM WORKER, agreed w/resident/PA/ROOM WORKER, reviewed EMR data (avail), discussed with nursing, discussed with case mgmt, reviewed images, amended to note Attending Assessment/Plan: Patient seen and examined, continues to complain of pain in the right upper quadrant as well as epigastrium. flotation tender helper in the right CVA region. She is a 30-year-old female with history of IV drug use who was admitted with sepsis secondary to acute pyelonephritis. Currently getting treated with antibiotics. Urine culture growing Escherichia coli and patient is also bacteremic with gram- negative rods. Blood cultures are not finalized yet. Continue current antibiotics. Also check right upper quadrant ultrasound. Patient claims that she does have a history of hepatitis in the past and was never treated. LFTs were normal. Please DC IV morphine and switch her to oral Percocet. DC Tylenol. DVT reflexes: Heparin subcutaneous.
[2016-07-24 08:28] VITALS: BP 104/60
[2016-07-24 08:47] LABS: ABSOLUTE BASOPHIL COUNT 0 /CUMM (0.0-0.2); ABSOLUTE EOSINOPHIL COUNT 0 /CUMM (0.0-0.7); ABSOLUTE GRANULOCYTE CT 7.8 /CUMM (1.4-6.5); ABSOLUTE LYMPH COUNT 2.5 /CUMM (1.2-3.4); ABSOLUTE MONOCYTE COUNT 0.7 /CUMM (0.10-0.60); BASOPHIL % 0.3 % (0.0-2.0); EOSINOPHIL % 0.2 % (0-5); GRANULOCYTE % 70.8 % (42.2-75.2); HEMATOCRIT 31.8 % (37-47); MEAN CORPUSCULAR HGB 29.5 PG (27.0-31.0); MEAN CORPUSCULAR HGB CONC 33.8 G/DL (33.0-37.0); MEAN CORPUSCULAR VOLUME 87.3 FL (81.0-99.0); MEAN PLATELET VOLUME 9.2 FL (7.4-10.4); PLATELET COUNT 255 /CUMM (130-400); RBC DISTRIBUTION WIDTH 14.2 % (11.5-14.5); RED BLOOD CELL CT 3.64 /CUMM (4.20-5.40)
[2016-07-24 16:26] VITALS: BP 116/82
--- NOTE | 2016-07-24 17:40 | ULTRASOUND REPORT ---
EXAMINATION: US ABDOMEN LIMITED CLINICAL INFORMATION: Abdominal pain of 6 days duration. COMPARISON: None TECHNIQUE: Real-time imaging of the right upper quadrant abdominal viscera. FINDINGS: PANCREAS: Largely obscured by overlapping bowel gas. LIVER: There is a longitudinal span of 18.3 cm. The liver demonstrates normal contour and echogenicity. No focal lesion or intrahepatic biliary duct dilatation. GALLBLADDER: There is a positive sonographic Riley's sign. There is trace pericholecystic fluid, without evidence of stones, sludge, polyps or wall thickening. COMMON BILE DUCT: Normal in caliber measuring 0.4 cm in diameter. RIGHT KIDNEY: Normal. No hydronephrosis. No renal calculi or focal parenchymal lesions. The kidney measures 11.9 cm in maximum dimension. FREE FLUID: None. IMPRESSION: 1. There is hepatomegaly. 2. There is trace, nonspecific pericholecystic fluid, without gallbladder wall thickening to suggest cholecystitis. No cholelithiasis or choledocholithiasis are seen. 3. Limited ultrasound evaluation of the pancreas.
--- NOTE | 2016-07-24 18:40 | NUR ---
FOUND PACKET OF CIGARETTES IN PATIENTS DRAWER AT 1300. SPOKE TO PATIENT THAT THESE ARE NOT ALLOWED IN THE HOSPITAL IT IS A NON-SMOKING FACILITY. MINESH TOOK THEM HOME. MARY OCTOBER NOTIFIED.
[2016-07-24 23:59] VITALS: BP 110/76
--- NOTE | 2016-07-25 07:20 | PN- Housestaff ---
See Addendum Subjective Follow-up For: Pyelonephritis Complaints: no complaints Subjective: Patient was visited and examined today. She is on IV ceftriaxone today is his third day pain and shaking chills and nausea vomiting has improved she has been able to tolerate regular diet has been ambulating which minimal pain and discomfort. Urine culture results are back for positive for Escherichia coli sensitive to penicillin and cephalosporins. Patient antibiotics was switched to by mouth Augmentin today plan was discussed with the patient she is agreeable with the discharge around noon with prescription for Augmentin and referral for Dr. Phoenix regarding history of untreated hepatitis C and to Dr. Sanchez for establishing primary care. Review of Systems Constitutional: Reports: see HPI. Denies: chills, diaphoresis, fever, malaise, weakness, unexplained weight loss. EENTM: Denies: blurred vision, double vision, visual changes, eye pain, eye drainage, eye tearing, icterus, ear discharge, ear pain, ear redness, hearing changes, nasal congestion, epistaxis, nasal pain, throat pain, throat swelling, mouth pain, tooth pain. Cardiovascular: Denies: chest pain, edema, orthopena, palpitations, peripheral edema, syncope. Respiratory: Denies: cough, hemoptysis, orthopnea, short of breath, sputum production, stridor, wheezing. Gastrointestinal: Denies: abdominal pain, bloating, constipation, diarrhea, distention, bowel incontinence, melena, nausea, bloody stool, changes in stool, vomiting, steatorrhea. Genitourinary: Denies: discharge, dysuria, frequency, hematuria, hesitation, nocturia, pain, urgency. Objective Last 24 Hrs of Vital Signs/I&O Vital Signs Date Time Temp Pulse Resp B/P Pulse O2 O2 Flow FiO2 Ox Delivery Rate 07/25 0806 98.0 72 18 120/70 99 Room Air 07/24 2359 98.4 65 18 110/76 98 Room Air 07/24 1626 98.4 63 18 116/82 98 Room Air 07/24 1532 97.9 07/24 1433 99.4 Intake & Output 07/25 1600 07/25 0800 07/25 0000 Intake Total 210 800 Output Total 350 700 Balance -140 100 Intake, IV 10 Intake, Oral 200 800 Output, Urine 350 700 Physical Exam General Appearance: Alert, Oriented X3, Cooperative, No Acute Distress Skin: No Rashes, No Breakdown, No Significant Lesion Neck: Supple, No JVD, No thryomegaly Lymphatic: Axillary nl, Cervical nl Lungs: Clear to Auscultation, Normal Air Movement Abdomen: Normal Bowel Sounds, Soft, No Tenderness, No Hepatospenomegaly, No Masses Neurological: Normal Gait, Normal Speech, Strength at 5/5 X4 Ext Assessment/Plan Assessment: 30 yo F with h/o chronic back pain, Hx of substance abuse was admitted for pyelonephritis. CT scan: Inhomogeneous attenuation of the right kidney is consistent with diffuse pyelonephritis. WBC: Final Antibiogram results are pending. Blood and urine Cx positive for Gram negative Rods. On IV cefteriaxone #2 day 1) Pyelonephritis * Urine culture grew pansensitive Escherichia coli antibiotic was switched from IV ceftriaxone after 3 days to by mouth Augmentin vital signs are stable patient is to be discharged today on by mouth Augmentin for completion of 14 days total antibiotic treatment * Pain management on by mouth Vicodin every 6 hours for severe pain * advance diet; stop IV fluids as she tolerated the diet * The blood culture and urine culture results for final antibiogram results Full code DVT prophylaxis heparin 5000 units every 8h Problem List: 1. Cellulitis of right axilla 2. Pyelonephritis 3. Cocaine abuse 4. Sepsis 5. Bacteremia Pain Ratin Pain Location: Mild right flank pain Pain Goal: Pain 4 or less Pain Plan: Vicodin every 6 hours for severe pain Tomorrow's Labs & Rationales: none DVT/Prophylaxis: pharmacological
[2016-07-25 08:06] VITALS: BP 120/70
[2016-07-25] MEDS ORDERED: HYDROCODON-ACE1 EAC2 PO ×2 (09:32→09:50)
[2016-07-25] MEDS ORDERED: AMOX-CLAV 875-1 EACH PO ×2 (09:32→09:50)
[2016-07-25] MEDS ORDERED: PERCOCET 5-3251 EACH PO (09:50)
--- NOTE | 2016-07-31 15:12 | Discharge Summary ---
Visit Information Visit Dates Admission Date: 07/22/16 Discharge Date: 07/25/16 Hospital Course Course Attending Physician: TRUONG BARAJAS,HUA Primary Care Physician: PATIENT HAS NO PRIMARY CARE DR Hospital Course: 30 yo F with h/o chronic back pain, substance abuse, is here with 3-day h/ throbbing right flank pain, urinary symptoms, fever, nausea and vomiting and severe right CVA tenderness. Imaging s/p right kidney pyelonephritis, no abscess or hydronephrosis. She was started on IV cefteriaxone. The results of the Urine Cx showed E. Coli, which was sensitive to Cefteriaxone. Patient symptomatology improved on the daily basis. She became and remained afebrile and was satretd on PO diet on the next on the next morning after admissiom. On , she was D/C home on PO Abx for the total duration of 14 days and recommendation for follow up with [facility] faculty practice. Additionally, on the second day of hospital admission, patient complained of RUQ and mid-epigastric pain. U/S imaging was unramarkable and pain resolved, however , she was recommended to follow up with GI specialist Dr. Phoenix for further assessment. Allergies: Coded Allergies: NO KNOWN ALLERGIES (02/15/16) Pertinent Lab Results: PATIENT: CAROL DIAMOND PRESENT AGE: 30 PATIENT ACCOUNT NO: [id number] : 87 LOCATION: [facility] ORDERING PHYSICIAN: JUAN CARLOS FARMER MD SERVICE DATE: 07/22/16 EXAM TYPE: CAT - CT ABD & PELVIS W IV CONTRAST EXAMINATION: CT ABDOMEN AND PELVIS WITH CONTRAST CLINICAL INFORMATION: Right flank pain and fever COMPARISON: CT chest 02/15/2016 TECHNIQUE: Multidetector volumetric imaging was performed of the abdomen and pelvis before and after the IV administration of 95 mL of Optiray 320 intravenous contrast. Sagittal and coronal reformatted images were obtained on the technologist's workstation. DLP: 315 mGy-cm. FINDINGS: LUNG BASES: The visualized lung bases are unremarkable. LIVER, GALLBLADDER, AND BILIARY TREE: The liver is normal in size, shape, and attenuation. No focal hepatic lesion or biliary ductal dilatation is present. The gallbladder is unremarkable with no evidence of radiopaque gallstones, gallbladder wall thickening, or obvious pericholecystic inflammatory changes. PANCREAS: The pancreas is normal in appearance. SPLEEN: There is mild splenomegaly. The spleen is normal in attenuation with no focal findings. The spleen measures approximately 15 cm in its greatest oblique diameter ADRENAL GLANDS: Normal KIDNEYS AND URETERS: The right kidney shows inhomogeneous enhancement with some focal areas of relatively decreased attenuation in the mid upper and lower pole cortex. These are ill-defined and largely involve the upper pole. This could be consistent with diffuse pyelonephritis. No organized abscess or mass is delineated. No perinephric fluid or loculated fluid collection is seen. There is no hydronephrosis, hydroureter, mass or stone. The left kidney is normal in appearance with symmetric enhancement and no hydronephrosis, mass or stone. BLADDER: The bladder is incompletely distended but normal in size and attenuation. No stone is seen GASTROINTESTINAL TRACT: There is no evidence for large or small bowel obstruction or acute inflammation. The appendix is normal in appearance. There is no diverticulosis or diverticulitis. ABDOMINAL WALL: No significant hernia is appreciated. LYMPH NODES: No bulky adenopathy is identified VASCULAR: No aneurysm is identified PELVIC VISCERA: There is a small rim-enhancing cyst in the left ovary measuring approximately 2 cm in size. This may be functional. Right ovary is unremarkable in appearance. Uterus is unremarkable. Several calcifications in the pelvis are likely phleboliths. No mass or free fluid identified. OSSEOUS STRUCTURES: No acute bony abnormality is seen. IMPRESSION: Inhomogeneous attenuation of the right kidney is consistent with diffuse pyelonephritis. No abscess or mass is delineated. No perinephric fluid collection is seen. There is no stone hydronephrosis or hydroureter. Splenomegaly with no focal finding Presumed functional cyst in the left ovary No other finding. DICTATED BY: SHERON ASTORGA MD DATE/TIME DICTATED:07/22/161701 ELECTRICAL AND INSTRUMENTATION MANAGER:PUNEET DATE/TIME TRANSCRIBED:07/22/161701 CONFIDENTIAL, DO NOT COPY WITHOUT APPROPRIATE AUTHORIZATION. <Electronically signed in Other Vendor System> SIGNED BY: SHERON ASTORGA MD 07/22 1716 PATIENT: CAROL DIAMOND PRESENT AGE: 30 PATIENT ACCOUNT NO: [id number] : 87 LOCATION: [facility] ORDERING PHYSICIAN: TISHA HECK MD SERVICE DATE: 07/24/16- EXAM TYPE: US - US-LIMITED ABDOMEN EXAMINATION: US ABDOMEN LIMITED CLINICAL INFORMATION: Abdominal pain of 6 days duration. COMPARISON: None TECHNIQUE: Real-time imaging of the right upper quadrant abdominal viscera. FINDINGS: PANCREAS: Largely obscured by overlapping bowel gas. LIVER: There is a longitudinal span of 18.3 cm. The liver demonstrates normal contour and echogenicity. No focal lesion or intrahepatic biliary duct dilatation. GALLBLADDER: There is a positive sonographic Riley's sign. There is trace pericholecystic fluid, without evidence of stones, sludge, polyps or wall thickening. COMMON BILE DUCT: Normal in caliber measuring 0.4 cm in diameter. RIGHT KIDNEY: Normal. No hydronephrosis. No renal calculi or focal parenchymal lesions. The kidney measures 11.9 cm in maximum dimension. FREE FLUID: None. IMPRESSION: 1. There is hepatomegaly. 2. There is trace, nonspecific pericholecystic fluid, without gallbladder wall thickening to suggest cholecystitis. No cholelithiasis or choledocholithiasis are seen. 3. Limited ultrasound evaluation of the pancreas. DICTATED BY: JESSICA MG MD DATE/TIME DICTATED:07/24/161733 ELECTRICAL AND INSTRUMENTATION MANAGER:PUNEET DATE/TIME TRANSCRIBED:07/24/161733 CONFIDENTIAL, DO NOT COPY WITHOUT APPROPRIATE AUTHORIZATION. <Electronically signed in Other Vendor System> SIGNED BY: JESSICA MG MD 07/24/16 1662 Disposition Summary Disposition Principal Diagnosis: Pyelonephritis Additional Diagnosis: History of drug abuse Discharge Disposition: home or self care Discharge Instructions General Discharge Information Code Status: Full Code Patient's Diet: heart healthy Patient's Activity: as tolerated Follow-Up Instructions/Appts: Please follow-up with Dr. Phoenix His follow-up with [facility] Medications at Discharge Discharge Medications: Start taking the following new medications: Hydrocodone/Acetaminophen (Hydrocodon-Acetaminophen 5-325) 5 MG-325 MG TABLET 1 Tablet ORAL EVERY SIX HOURS NEEDED as needed for PAIN SCALE 7-10 ( SEVERE) Qty = 12 No Refills Amoxicillin/Clavulanate Potass (Amox-Clav 875-125 MG Tablet) 875 MG-125 MG TABLET 1 Tablet ORAL EVERY 12 HOURS Qty = 22 No Refills Oxycodone HCl/Acetaminophen (Percocet 5-325 MG Tablet) 5 MG-325 MG TABLET 2 Tablet ORAL EVERY 4 HOURS NEEDED as needed for PAIN SCALE 7-10 (SEVERE) Qty = 12 No Refills Copies To: RUT BARAJAS,LOIS Attending MD Review Statement Documenting Attending: HUA GUERIN MD
== END 2016-07-25 13:30 | DRG 720 ==
LOC: ERH 14:43 → 2NB 18:39 → ENPENDDIS 18:39 → ERHI 18:39 → 2NB 07-23 01:53
PROVIDERS: Emergency Medicine; Internal Medicine Hematology & Oncology; Student in an Organized Health Care Education/Training Program; ADMIT Student in an Organized Health Care Education/Training Program
DX: A41.9 Sepsis, unspecified organism (principal); N10 Acute pyelonephritis; F14.10 Cocaine abuse, uncomplicated; N83.202 Unspecified ovarian cyst, left side; F11.10 Opioid abuse, uncomplicated; F17.210 Nicotine dependence, cigarettes, uncomplicated
CPT/HCPCS: 2NSBP; ERO; 36415; 74177; 80307; 81001; 81025; 82436; 87040; 87086; 93005; 93010; 96372; 96374; 96375; 99291; J0131; J0696; J1644; J1885; J2405; J2550